=== PATIENT | male | born 1950 | race Native Hawaiian/Other Pacific Islander ===

== ENCOUNTER → 2016-03-08 | Outpatient (CLI) | payer BC, MEDICARE | LOC: GMAH 10:35 | PROVIDERS: ATTEND Family Medicine | DX: I50.22 Chronic systolic (congestive) heart failure (principal); Z12.5 Encounter for screening for malignant neoplasm of prostate | CPT/HCPCS: 84443; 84550; G0103 ==

== ENCOUNTER → 2017-08-21 | Outpatient (CLI) | payer BC | LOC: GMAH 11:55 | PROVIDERS: ATTEND Family Medicine | DX: I25.810 Atherosclerosis of coronary artery bypass graft(s) without angina pectoris (principal); D72.829 Elevated white blood cell count, unspecified; Z12.5 Encounter for screening for malignant neoplasm of prostate | CPT/HCPCS: 84443; 84550; G0103 ==

== ENCOUNTER → 2018-02-20 | Outpatient (CLI) | payer BC ==
--- NOTE | 2018-02-20 16:41 | CT ---
EXAM DESCRIPTION: CTA Runoff: Computed Tomography. CLINICAL HISTORY: THORACIC AORTIC ANEURYSM COMPARISON: CT chest without contrast on this visit. TECHNIQUE: CT angiography of the abdominal aorta and both lower extremities is performed during rapid bolus administration of IV contrast media. Three-dimensional volume-rendering imaging is reviewed along with 2.5 x 2.5 mm source images, and 2 mm coronal and sagittal reformats. Total Exam DLP: 1642.39 mGy-cm. This exam was performed according to our departmental CT dose-optimization program which includes automated exposure control, adjustment of the mA and/or kV according to patient size and/or use of iterative reconstruction technique; to reduce radiation dose to as low as reasonably achievable (ALARA). FINDINGS: Upper abdominal aorta: Atherosclerotic calcification of the ostia of the celiac axis and the SMA no significant stenosis or poststenotic dilation. No aortic aneurysm. Mid-abdominal aorta: Bilateral single renal arteries with calcification of the ostia but no stenosis or dilation. Moderate atherosclerotic calcification. No aortic aneurysm.. Distal abdominal aorta: Moderate calcification including the origin of the RICHARDSON. Luminal narrowing of the aorta with no aneurysm. Common iliacs: Minimal atherosclerotic calcification bilaterally with no significant narrowing or aneurysm. Internal iliacs: Origins are unremarkable with intermittent atherosclerotic calcification and normal caliber. Bilateral external iliac artery: Negative. Bilateral DIRECT CARE WORKER's: Moderate calcification and minimal narrowing. No abnormalities of the bifurcation. Bilateral SFA's: No significant calcification narrowing or aneurysm. Bilateral popliteal's no significant calcification narrowing or aneurysm. Right trifurcation vessels: . Good Visualization of the peroneal CELLAR WORKER trunk with the peroneal terminating normally just above the ankle mortise. Good runoff of the CELLAR WORKER into the high posterior ankle and plantar foot.] Fair visualization of the ALESSANDRA. Poor runoff into the dorsalis pedis artery. Left trifurcation vessels: . Good visualization of the peroneal CELLAR WORKER trunk. Good to fair visualization of the peroneal which terminates normally above the ankle mortise. Good visualization of the entire left CELLAR WORKER and good runoff into the left plantar foot. Good 2 fair visualization of the left ALESSANDRA and fair runoff into the left dorsalis pedis. Other: Small periaortic nodes. No free air or free fluid or peritoneal or retroperitoneal mass. Calcification in the prostate gland. Bilateral fatty inguinal canal hernias not containing bowel. Grade 1 anterolisthesis L4-5. IMPRESSION: 1. Mild to moderate atherosclerotic changes in the abdominal aorta with no significant stenosis of the aorta or the major branch vessels near the origins. No aneurysms. 2. Minimal iliac disease bilaterally and no aneurysms or stenoses. 3. Bilateral femoral arterial supply is good. 4. Right inferior lower extremity arterial supply is good but poor runoff from the ALESSANDRA into the dorsalis pedis artery. Left inferior lower extremity arterial supply is in good with good fair runoff into the posterior inferior foot and the anterior dorsal foot. ECMO details. Electronically signed by: Leonel Vaca MD 02/20/2018 4:39 PM [facility]
--- NOTE | 2018-02-20 17:05 | CT ---
EXAM DESCRIPTION: Chest w/o Contrast : Computed Tomography. CLINICAL HISTORY: 67 years Male THORACIC AORTIC ANEURYSM, WITHOUT RUPTURE COMPARISON: CTA of the abdominal aorta and bilateral lower extremities on this visit. TECHNIQUE: Spiral-axial scans at 5 x 5 mm intervals through the lungs and thorax without IV contrast. 2.5 x 5 mm lung algorithm axial reconstructions. Coronal and sagittal 2.0 pleural parenchymal scarring in the right apex inferior right middle lobe and inferior lingula and in the posterior recess of the right lower lobe. Mm reconstructions. No adverse reactions. Total Exam DLP: 628.22 mGy-cm. This exam was performed according to our departmental dose-optimization program which includes automated exposure control, adjustment of the mA and/or kV according to patient size and/or use of iterative reconstruction technique; to reduce radiation dose to as low as reasonably achievable (ALARA). Nodule measurements under 10 mm are given as mean value of 3 axes diameters. FINDINGS: Lungs and large airways: Partially solid and groundglass 5 mm nodule subpleural lateral right middle lobe associated with pleural extension laterally into the major fissure on axial series 4, image 57. Stable since the prior study. Bilateral small blebs in a centrilobular pattern predominantly in the upper lobes. 1.6 x 1.1 cm density which appears to be part of the lateral pleural thickening in the inferior lingula with associated parenchymal scarring. Pleural spaces: Bilateral pleural thickening as previously described. No effusion or pneumothorax. Mediastinum and Renetta: Evaluation limited due to lack of IV contrast scattered nodes throughout the mediastinum but no enlarged nodes. No enlarged hilar nodes. Surgical clips. No soft tissue masses. Great vessels and Heart: Evaluation limited due to lack of IV contrast. Atherosclerotic calcification of the proximal brachiocephalic cephalic vessels, aortic arch, some coronary arteries, and descending thoracic aorta. Coronary artery stents. Soft tissues of neck base, axillae, and chest wall: Evaluation limited due to lack of IV contrast. Small thyroid gland. Bilateral axillary lymph nodes normal size. Upper abdomen: Please see CTA abdominal aorta findings. Osseous structures: Minimal spondylosis. Sternotomy wires. Minimal arthrosis of the sternum. Anterior and posterior right labrum and glenoid with degenerative change.. IMPRESSION: 1. Minimal emphysematous changes bilaterally. Focal pleural scarring more likely than groundglass nodule in the lateral segment of the right middle lobe. Stable since the prior study abutting the inferior lingula, taking into account differences in CT scanning technique. Also focal pleural scarring in the inferior lingula. 2. No hilar or mediastinal adenopathy or soft tissue mass and other soft tissues are unremarkable. Limited evaluation due to lack of IV contrast. 3. Right glenoid labrum and right anterior glenoid degenerative changes. Correlate with clinical history and consider follow-up MRI or CT, or MRI/CT arthrogram of the right shoulder. Electronically signed by: Leonel Vaca MD 02/20/2018 5:03 PM [facility]
== END ==
LOC: LAB.O 08:46
PROVIDERS: ATTEND Family Medicine
DX: I71.2 Thoracic aortic aneurysm, without rupture (principal); I70.0 Atherosclerosis of aorta; D72.829 Elevated white blood cell count, unspecified

== ENCOUNTER → 2018-08-22 | Outpatient (CLI) | payer BC | LOC: GMAH 10:35 | PROVIDERS: ATTEND Family Medicine | DX: C91.10 Chronic lymphocytic leukemia of B-cell type not having achieved remission (principal) ==

== ENCOUNTER → 2018-08-30 | Outpatient (CLI) | payer BC | LOC: GMAH 10:30 | PROVIDERS: ATTEND Family Medicine | DX: I42.9 Cardiomyopathy, unspecified (principal); Z12.5 Encounter for screening for malignant neoplasm of prostate ==

== ENCOUNTER → 2018-11-26 | Outpatient (CLI) | payer BC | LOC: GMA MATASK 11:32 | PROVIDERS: ATTEND Family Medicine | DX: C91.10 Chronic lymphocytic leukemia of B-cell type not having achieved remission (principal); I10 Essential (primary) hypertension ==

== ENCOUNTER → 2019-03-06 | Outpatient (CLI) | payer BC | LOC: GMA MATASK 11:39 | PROVIDERS: ATTEND Family Medicine | DX: C91.10 Chronic lymphocytic leukemia of B-cell type not having achieved remission (principal) ==

== ENCOUNTER → 2019-03-12 | Outpatient (CLI) | payer BC, MEDICARE ==
--- NOTE | 2019-03-13 10:24 | CT ---
EXAM DESCRIPTION: Chest w/Contrast CLINICAL HISTORY: 68 years Male, RESTAGING LYMPHCYTIC LEUKEMIA COMPARISON: CT chest dated 02/20/2018. CT runoff dated 02/20/2018. TECHNIQUE: Contiguous thin section axial images through the chest were obtained after the administration of intravenous contrast. Sagittal and coronal reconstructions were reviewed. FINDINGS: The visualized thyroid gland and supraclavicular region appear normal. Few mediastinal lymph nodes measuring up to 8mm are noted. No abnormally enlarged bilateral hilar lymphadenopathy. Multiple bilateral axillary lymph nodes measuring up to 1.3 cm are noted. These also appear unchanged compared to prior examination. Trachea is midline and the central tracheobronchial tree is patent. Linear atelectasis is noted in the visualized lungs. No evidence of consolidative or groundglass changes. No nodules or masses are visualized. No evidence of pleural effusions. The heart is normal in size with no pericardial effusion. The visualized aorta is nonaneurysmal with moderate to severe atherosclerosis. The superior vena cava is normal in size and caliber.No significant coronary artery atherosclerosis. The esophagus appears normal throughout its visualized length. Mild degenerative changes are identified throughout the visualized spine. IMPRESSION: Stable mediastinal and bilateral axillary lymphadenopathy compared to prior examination dated 02/20/2018. No other newly enlarged lymph nodes are visualized. This exam was performed according to our departmental dose-optimization program, which includes automated exposure control, adjustment of the mA and/or kV according to patient size and/or use of iterative reconstruction technique. Electronically signed by: Erin Xiong MD 03/13/2019 10:22 AM [facility]
--- NOTE | 2019-03-13 10:29 | CT ---
EXAM DESCRIPTION: Abdomen/Pelvis w/Contrast CLINICAL HISTORY: 68 years Male, RESTAGING LYMPHCYTIC LEUKEMIA COMPARISON: CTA runoff dated 02/20/2018. TECHNIQUE: Contiguous 3 mm axial images were obtained from the lung bases to the level of the proximal femora after the administration of intravenous and oral contrast. Sagittal and coronal reconstructions were reviewed. FINDINGS: THORAX: The imaged lower thorax demonstrates no gross abnormality. LIVER: The liver demonstrates normal size and density with no intrahepatic biliary ductal dilatation or focal masses. GALLBLADDER: Grossly unremarkable. PANCREAS: Appears normal with no cystic or solid lesions. SPLEEN: Mildly enlarged in size measuring 16.4 x 14.2 cm. ADRENAL GLANDS: Normal with no nodules or masses. KIDNEYS: Nonspecific bilateral perinephric stranding. However no nephrolithiasis or hydronephrosis. No focal masses are identified. The visualized ureters appear grossly unremarkable. STOMACH: Not well distended limiting detailed evaluation. SMALL BOWEL: The small bowel loops demonstrate variable degrees of distention with no abnormal dilatation or other signs to suggest bowel obstruction. LARGE BOWEL: Majority of the colon is not well-distended limiting detailed evaluation. Few diverticuli are identified. The appendix is well-visualized and appears normal No evidence of free intraperitoneal air or fluid. RETROPERITONEUM: The abdominal aorta is nonaneurysmal with moderate to severe atherosclerosis. The inferior vena cava is normal in size and caliber. Multiple peripancreatic lymph nodes measuring up to 2 cm are again noted. Few retroperitoneal lymph nodes measuring up to 9 mm are also identified. Few subcentimeter mesenteric lymph nodes are present. 1.2 cm left external iliac lymph node and 8mm right external iliac lymph node. Multiple bilateral inguinal lymph nodes measuring up to 1.2 cm. URINARY BLADDER:The urinary bladder is well-distended with no gross abnormality. The prostate gland demonstrates few calcifications. Seminal vesicles appear normal. ADDITIONAL FINDINGS: Fat-containing bilateral inguinal hernias, slightly larger on the left side. BONES: Mild degenerative changes are identified in the visualized bones. Minimal anterolisthesis of L4 over L5 secondary to facet arthropathy. IMPRESSION: Stable peripancreatic, retroperitoneal, mesenteric, bilateral external iliac and inguinal lymphadenopathy compared to prior examination dated 02/20/2018. Persistent mild splenomegaly. No evidence of new metastatic disease within the abdomen and pelvis. This exam was performed according to our departmental dose-optimization program, which includes automated exposure control, adjustment of the mA and/or kV according to patient size and/or use of iterative reconstruction technique. Electronically signed by: Erin Xiong MD 03/13/2019 10:27 AM [facility]
== END ==
LOC: CT 15:20
PROVIDERS: ATTEND Internal Medicine Hematology & Oncology
DX: C91.11 Chronic lymphocytic leukemia of B-cell type in remission (principal); C90.00 Multiple myeloma not having achieved remission; R16.1 Splenomegaly, not elsewhere classified

== ENCOUNTER → 2019-10-28 | Outpatient (CLI) | payer BC ==
--- NOTE | 2019-10-28 10:03 | CT ---
EXAM DESCRIPTION: Chest w/Contrast (accession [id number]), Abdomen/Pelvis w/Contrast (accession [id number]) CLINICAL HISTORY: chronic lymphocytic leukemia of b-cell COMPARISON: Chest CT March 12, 2019, CT abdomen pelvis February 20, 2018 TECHNIQUE: CT of the chest, abdomen and Pelvis was performed with IV contrast. This exam was performed according to our departmental dose-optimization program, which includes automated exposure control, adjustment of the mA and/or kV according to patient size and/or use of iterative reconstruction technique. FINDINGS: CT Chest: The thyroid and thoracic inlet are unremarkable. Postoperative changes in the mediastinum. Coronary artery calcification with additional mural calcification in the thoracic aorta, no aneurysm or dissection. No pleural or pericardial effusion. No mediastinal or hilar adenopathy. Axillary and mediastinal adenopathy seen on the prior chest CT are not present on today's exam. No esophageal wall thickening. The central airways are clear. No airspace consolidation or lung mass. Platelike atelectasis or scarring in the right lower lobe. Mild subsegmental atelectasis or scarring in the lingula tiny calcified granuloma in the left lower lobe. Elevated right hemidiaphragm. No axillary adenopathy or other chest wall lesion. No lytic or sclerotic bone lesion. CT Abdomen/Pelvis: Mural calcification in the abdominal aorta without aneurysm or dissection. Nonenlarged bilateral inguinal lymph nodes, stable. No retroperitoneal or mesenteric adenopathy. The liver, spleen, pancreas, adrenals and kidneys are unremarkable except for small cyst superior pole right kidney. No dilated small bowel loops or mesenteric inflammation. No bladder wall thickening. The prostate is not enlarged. Colonic diverticulosis without diverticulitis, normal appendix. Degenerative changes in the lumbar spine at several levels with grade 1 anterolisthesis at L4-5 likely related to underlying facet joint degeneration. Compression of the L3 body likely related to a large Schmorl's node superior endplate, but this is new from February,. IMPRESSION: No evidence of recurrent or metastatic disease in the chest, abdomen or pelvis. New compression of the L3 vertebral body with a large Schmorl's node superior endplate at least partially accounting for loss of vertebral body height. If clinically suspicious of acute compression fracture, MRI should be considered. Atherosclerotic vascular disease including coronary artery disease. Electronically signed by: Bowen Bartholomew MD 10/28/2019 10:01 AM CDT
== END ==
LOC: CT 08:14
PROVIDERS: ATTEND Internal Medicine Hematology & Oncology
DX: Z01.812 Encounter for preprocedural laboratory examination (principal); C91.10 Chronic lymphocytic leukemia of B-cell type not having achieved remission; M51.46 Schmorl's nodes, lumbar region; M51.86 Other intervertebral disc disorders, lumbar region; I25.10 Atherosclerotic heart disease of native coronary artery without angina pectoris